=== PATIENT | male | born 1970 | race Caucasian/White ===

== ENCOUNTER → 2018-10-03 | Outpatient (CLI) | payer BC, OTHER ==
--- NOTE | ~2018-10-03 | EKG ---
[place] [address] [address] [employer] [facility] [place] [address] ELECTROCARDIOGRAM REPORT Name: FRANKY ROSARIO Room #: [facility]HRober[facility] HamiltonLeonel#: [id number] Admission: 10/03/18 Attend Phys: Davin Eckert MD, Discharge: Date of : 68 Report #: [id number] THIS REPORT FOR: //name// [facility] Test Date: 2018-10-03 Test Time: 11:04:01 Pat Name: FRANKY ROSARIO Department: Room: Gender: Sales Clerk: Rodolfo CURTIS : 1970 Requested By: Davin Eckert Order Number: [id number] MD: Davey Ortiz Measurements Intervals [place] Rate: 62 P: 45 MS: 139 QRS: 29 QRSD: 104 T: 15 QT: 427 QTc: 434 Interpretive Statements Sinus rhythm Early Transition Non specific st/t wave changes No previous ECG available for comparison Electronically Signed On 10-03-2018 15:01:02 RADIOLOGIC TECHNOLOGY PROGRAM DIRECTOR by Davey Ortiz [email or web address] <ELECTRONICALLY SIGNED> By: Davey Ortiz MD 10/03/18 1501 1104 [id number] Davey Ortiz MD /AMY
[2018-10-03 10:37] LABS: ABSOLUTE NEUTROPHILS 4.7 thou/uL (1.4-8.2); BASOPHILS 0.3 % (0.0-2.0); EOSINOPHILS 6.3 % (0.0-3.0); HEMATOCRIT 43.3 % (42.0-52.0); HEMOGLOBIN 14.8 gm/dL (14.0-18.0); LYMPHOCYTES 17.3 % (24.0-44.0); MCHC 34.3 g/dL (28.0-37.0); MCV 90.5 fL (80.0-100.0); MONOCYTES 9.6 % (1.0-8.0); PLATELET COUNT 223 thou/uL (150-400); POLYS 66.5 % (36.0-66.0); RBC 4.78 mil/uL (4.50-6.00); RDW 13.8 % (10.5-14.5); WBC 7.1 thou/uL (4.0-11.0)
[2018-10-03 10:52] LABS: ALBUMIN 3.4 g/dL (3.4-5.0); CALCIUM 9.2 mg/dL (8.5-10.1); POTASSIUM 4.3 mmol/L (3.5-5.1); TOTAL BILIRUBIN 0.5 mg/dL (<0.1-1.0)
== END ==
LOC: LAB 09:51
PROVIDERS: Surgery
DX: Z01.818 Encounter for other preprocedural examination (principal)